=== PATIENT | female | born 1980 | race Caucasian/White ===

== ENCOUNTER 2018-03-01 15:17 | Emergency (ER) | payer MEDICAID, OTHER ==
[2018-03-01 16:32] VITALS: BP 115/65
[2018-03-01] MEDS ORDERED: Albuterol HFA INHALER* 8 gm MDI INH ONE (17:39)
--- NOTE | 2018-03-01 17:39 | ED ---
Respiratory - HPI Summary HPI Summary: 37 yo WF c/o SOb x 4 days associated with URI sx that started 2-3 weeks ago but became progressively worse and now more SOB at night, denies f/c - History of Current Complaint Chief Complaint: UCRespiratory Stated Complaint: SOB, COUGH Time Seen by Provider: 03/01/18 17:13 Hx Obtained From: Patient Onset/Duration: Lasting Weeks Current Severity: Severe Pain Intensity: 0 Character: Cough (Nonproductive) - Allergy/Home Medications Allergies/Adverse Reactions: Allergies Allergy/AdvReac Type Severity Reaction Status Date / Time No Known Allergies Allergy Verified 03/01/18 16:32 Home Medications: Home Medications Albuterol HFA INHALER* [Ventolin HFA Inhaler*] 2 puff INH Q6H PRN 03/01/18 [ History Confirmed 03/01/18] PMH/Surg Hx/FS Hx/Imm Hx Previously Healthy: Yes Infectious Disease History: No Infectious Disease History: Denies: Traveled Outside the [place] in Last 30 Days - Social History Alcohol Use: Rare Substance Use Type: Reports: None Smoking Status (MU): Light Every Day Tobacco Smoker Review of Systems Constitutional: Negative Eyes: Negative ENT: Negative Cardiovascular: Negative Positive: Shortness Of Breath, Cough Gastrointestinal: Negative Genitourinary: Negative Musculoskeletal: Negative Skin: Negative Neurological: Negative All Other Systems Reviewed And Are Negative: Yes Physical Exam - Summary Physical Exam Summary: Vital Signs Reviewed: Yes Appearance: Positive: Well-Appearing Skin: Positive: Warm Head/Face: Positive: Normal Head/Face Inspection Eyes: Positive: Normal, EOMI, EDEN ENT: Positive: Normal ENT inspection Neck: Positive: Supple Respiratory/Lung Sounds: Positive: decreased BS B/L, NO wheezing, mild rhonchi Cardiovascular: Positive: Normal, RRR, S1, S2 Abdomen Description: Positive: Nontender, Soft Musculoskeletal: Positive: Normal Neurological: Positive: CN Intact II-XII Psychiatric: Positive: Normal Triage Information Reviewed: Yes Vital Signs On Initial Exam: Initial Vitals Temp Pulse Resp BP Pulse Ox 36.2 C 76 20 115/65 100 03/01/18 16:28 03/01/18 16:28 03/01/18 16:28 03/01/18 16:28 03/01/18 16:28 Diagnostics - Vital Signs Vital Signs Temp Pulse Resp BP Pulse Ox 03/01/18 16:28 36.2 C 76 20 115/65 100 - Laboratory Lab Statement: Any lab studies that have been ordered have been reviewed, and results considered in the medical decision making process. Disposition - Course Course Of Treatment: CXR- neg for alveolar infiltrates but willl tx for bronchitis Assessment/Plan: Bronchitis- z-dagoberto - Diagnoses Provider Diagnoses: SOB (shortness of breath), Bronchitis Discharge - Sign-Out/Discharge Documenting (check all that apply): Patient Departure All imaging exams completed and their final reports reviewed: Yes - Discharge Plan Condition: Stable Disposition: HOME Prescriptions: Azithromyxin DAGOBERTO (NF) [Z-Dagoberto (Zithromax) 250 mg tabs #6] 2 tab PO .TODAY, THEN 1 DAILY #6 tab Patient Education Materials: Acute Bronchitis (ED) Referrals: Ryanne Granados MD [Primary Care Provider] - Additional Instructions: F/un with PCP or ceramic tile installer if sx worsen - Billing Disposition and Condition Condition: STABLE Disposition: Home
--- NOTE | 2018-03-01 18:04 | RAD ---
INDICATION: Cough and shortness of breath for 4 days. Intermittent tobacco use. COMPARISON: No relevant prior exams available on the [facility] [place] PACS for comparison. TECHNIQUE: Dual energy PA and routine lateral views of the chest were obtained. REPORT: No focal pulmonary lesion, compelling alveolar consolidation, pleural effusion, pneumothorax. The heart, pulmonary vasculature, and mediastinal contours are unremarkable. Unremarkable soft tissue contours and osseous structures. IMPRESSION: #. No evidence for acute intrathoracic disease.
== END 2018-03-01 18:33 | disposition home or self-care (01) ==
LOC: UCCORT 15:17
DX: J40 Bronchitis, not specified as acute or chronic (principal); R06.02 Shortness of breath; F17.200 Nicotine dependence, unspecified, uncomplicated
CPT/HCPCS: 71046; 99212; A9270-GY; G0463

== ENCOUNTER 2018-05-21 09:05 | Emergency (ER) | payer OTHER ==
[2018-05-21 09:38] VITALS: BP 101/59
--- NOTE | 2018-05-21 10:19 | UC ---
Respiratory Complaint HPI - HPI Summary HPI Summary: cough x 4 weeks chest congestion , wheezing, difficulty breathing was seen 3 weeks ago , was placed on Zpak/ prednisone and albuterol has some improvement but not fully better, no fever, no chills - History of Current Complaint Chief Complaint: UCRespiratory Stated Complaint: SOB/COUGH/WHEEZY Time Seen by Provider: 05/21/18 10:06 Hx Obtained From: Patient Hx Last Menstrual Period: 05/20/18 Onset/Duration: Gradual Onset, Lasting Weeks - 4, Still Present Timing: Constant Severity Initially: Moderate Severity Currently: Moderate Pain Intensity: 4 Character: Cough: Nonproductive Aggravating Factors: Exertion, Deep Breaths Alleviating Factors: Bronchodilator Associated Signs And Symptoms: Positive: Dyspnea, Wheezing, URI, Nasal Congestion. Negative: Fever, Chills - Allergies/Home Medications Allergies/Adverse Reactions: Allergies Allergy/AdvReac Type Severity Reaction Status Date / Time codeine Allergy Nausea Verified 05/21/18 09:30 Home Medications: Home Medications Escitalopram Oxalate [Lexapro 20 mg] 40 mg PO DAILY 05/21/18 [History Confirmed 05/21/18] Multivitamins/Minerals TAB* [Theragran/minerals TAB*] 1 tab PO DAILY 05/21/18 [ History Confirmed 05/21/18] Naproxen TAB* [Naprosyn 375 mg TAB*] 375 mg PO ONCE 05/21/18 [History Confirmed 05/21/18] PMH/Surg Hx/FS Hx/Imm Hx Previously Healthy: Yes - Surgical History Surgical History: Yes Surgery Procedure, Year, and Place: - Family History Known Family History: Negative: Diabetes - Social History Alcohol Use: Occasionally Substance Use Type: None Smoking Status (MU): Light Every Day Tobacco Smoker Type: Cigarettes Amount Used/How Often: 1-2 cigs/day Review of Systems All Other Systems Reviewed And Are Negative: Yes Constitutional: Positive: Negative Skin: Positive: Negative Eyes: Positive: Negative ENT: Positive: Nasal Discharge. Negative: Sore Throat, Ear Ache, Sinus Congestion, Sinus Pain/Tenderness Respiratory: Positive: Shortness Of Breath, Cough Cardiovascular: Positive: Negative Gastrointestinal: Positive: Negative Is Patient Immunocompromised?: No Physical Exam Triage Information Reviewed: Yes Appearance: Well-Appearing, No Pain Distress, Well-Nourished Vital Signs: Initial Vital Signs Temp 98.2 F 05/21/18 09:31 Pulse 83 05/21/18 09:31 Resp 18 05/21/18 09:31 BP 101/59 05/21/18 09:31 Pulse Ox 96 05/21/18 09:31 Vital Signs Reviewed: Yes Eye Exam: Normal Eyes: Positive: Conjunctiva Clear ENT: Positive: Normal ENT inspection, Hearing grossly normal, Pharynx normal, Nasal congestion Neck: Positive: Supple, Nontender, No Lymphadenopathy Respiratory: Positive: Chest non-tender, Wheezing. Negative: Respiratory distress, Crackles, Rhonchi, Stridor Cardiovascular: Positive: RRR, No Murmur UC Diagnostic Evaluation - Laboratory O2 Sat by Pulse Oximetry: 96 Respiratory Course/Dx - Differential Dx/Diagnosis Provider Diagnosis: Bronchitis Discharge - Sign-Out/Discharge Documenting (check all that apply): Patient Departure All imaging exams completed and their final reports reviewed: No Studies - Discharge Plan Condition: Stable Disposition: HOME Prescriptions: Albuterol HFA INHALER* [Ventolin HFA Inhaler*] 2 puff INH Q6H PRN #1 mdi PRN Reason: Wheezing Codeine Phosphate/Guaifenesin [Cheratussin AC] 10 ml PO Q8H #120 ml MDD 30 ml predniSONE [Prednisone 20 MG TAB] 20 mg PO BID #10 tablet Patient Education Materials: Acute Bronchitis (ED) Referrals: Ryanne Granados MD [Primary Care Provider] - If Needed - Billing Disposition and Condition Condition: STABLE Disposition: Home
== END 2018-05-21 10:19 | disposition home or self-care (01) ==
LOC: UCCORT 09:05
DX: J40 Bronchitis, not specified as acute or chronic (principal); J06.9 Acute upper respiratory infection, unspecified; F17.210 Nicotine dependence, cigarettes, uncomplicated; Z88.5 Allergy status to narcotic agent
CPT/HCPCS: 99212; G0463

== ENCOUNTER 2019-02-24 08:14 | Inpatient (IN) | payer OTHER ==
[2019-02-24] MEDS ORDERED: Lactated Ringers 1000 ML Bag* 1,000 ML IV ONE ×2 (08:33→14:29)
[2019-02-24] MEDS ORDERED: Buffered Lidocaine 1% SYRIN* 1 ML/SYRINGE INTRADERM ONE (08:33)
[2019-02-24] MEDS ORDERED: Lactated Ringers 1000 ML Bag* 1,000 ML IV SCH ×3 (09:00→19:00)
[2019-02-24] MEDS ORDERED: Oxytocin in LR* 20 UNITS/1,000 ML BAG IVPB SCH (09:00)
[2019-02-24 09:11] LABS: Urine Benzodiazepine Screen None Detected (None Detect); Urine Opiates Screen None Detected (None Detect)
[2019-02-24 09:29] LABS: ABS Eosinophils 0.1 10^3/ul (0-0.6); ABS Lymphocytes 1.7 10^3/ul (1.0-4.8); ABS Monocytes 0.6 10^3/ul (0-0.8); ABS Neutrophils 6.4 10^3/ul (1.5-7.7); Eosinophil % 1.5 %; Hematocrit 37 % (35-47); Hemoglobin 12.6 g/dL (12.0-16.0); Lymphocyte % 18.8 %; Mean Corpuscular HGB Conc 35 g/dL (31-36); Mean Corpuscular Hemoglobin 32 pg (27-31); Mean Corpuscular Volume 93 fL (80-97); Mean Platelet Volume 9.7 fL (7.4-10.4); Platelet Count 187 10^3/uL (150-450); Red Blood Count 3.93 10^6 /uL (3.70-4.87); Red Cell Distribution Width 14 % (10-15); White Blood Count 8.8 10^3/uL (3.5-10.8)
--- NOTE | 2019-02-24 09:34 | HP ---
General Information - Reason for Visit Induction - General Information Maternal Age: 38 Grav: 10 Para: 5 SAB: 4 IEA: 0 Estimated Due Date: 02/18/19 Determined By: Early Ultrasound Maternal Blood Type and Rh: O Positive - Results this Serology/RPR Result: Non-Reactive Rubella Result: Immune HBsAg Result: Negative HIV Result: Negative GBS Culture Result: Negative Past Medical History Delivery History: Hx C/Section - 2 successful VBACs Pertinent Past Medical History: Non-Contributory Pertinent Past Surgical History: See Records Pertinent Family History: Non-Contributory - Antepartal Records Antepartal Records: Reviewed, Uncomplicated Review of Systems Constitutional: Comfortable CV Complaint: No Respiratory: Shortness of Breath: No Gastrointestinal: No Nausea/Vomiting Genitourinary: No Dysuria, No Bleeding, No Leaking Fluid Musculoskeletal: No Complaint Neurological: No Headache Movement: Normal Exam Allergies/Adverse Reactions: Allergies codeine Allergy (Verified 05/21/18 09:30) Nausea Lab Values - Entire Visit: Laboratory Tests 02/24/19 08:30 Urine Opiates Screen None detected Ur Barbiturates Screen None detected Ur Phencyclidine Scrn None detected Ur Amphetamines Screen None detected U Benzodiazepines Scrn None detected Urine Cocaine Screen None detected U Cannabinoids Screen None detected - Measurements Height: 5 ft 6 in Weight: 180 lb Weight in lbs: [id number] Body Mass Index (BMI): 29.0 Pre- Weight: 150 lb Weight Gained This : 30 lbs and 0 ozs - Exam Breast: Breast Exam Deferred Extremities: No Edema Heart: Normal Rhythm/Heart Sounds HEENT: No Significant Findings - Abdominal Exam Abdomen Exam: Non-Tender - Ultrasound/Biophysical Profile Ultrasound Status: Not Done Targeted Exam Findings Cervical Exam: Fingertip - in office on 02/21 Membrane Status: Intact EFM Findings - External Monitor Findings Baseline Heart Rate: 140 External Monitor Findings: Accelerations Present, No Pattern of Variable or Late Decelerations, Variability Moderate, Baseline Stable Contractions: None Assessment/Plan - Assessment P5 @40.6wks with CS x1 for distress followed by 2 VBACs, here for induction with low dose pit. - Obstetrical Risk Factors Obstetrical Risk Factors: Previous C/Section in Labor - Plan Plan: Induction, Admit - Anticipate Vaginal Delivery
--- NOTE | 2019-02-24 12:42 | PN ---
Progress Note - Progress Note Date of Service: 02/24/19 Note: Pt susan every 2min. Would like cervix checked. They are pretty uncomfortable and she has to breath through them now. Pit @8. SROM just prior to exam - clear fluid. VE:1/80/-1/posterior FHT: 135bpm, +accels, no decels, mod variability [place]: ctx q2min. Plan: decrease pit to 6. Monitor. Not ready for epidural quite yet.
[2019-02-24] MEDS ORDERED: OBEPIDURAL* 250 ML EPIDURAL ONE (13:56)
[2019-02-24] MEDS ORDERED: Bupivacaine 0.25% SDV PF* 10 ML VIAL INJ ONE (13:58)
[2019-02-24] MEDS ORDERED: EPHEDrine (Pressors)* 50 MG/ML VIAL IV PUSH PRN (14:29)
[2019-02-24] MEDS ORDERED: Sodium Citrate/Citric Acid* 15 ML UDC PO PRN (14:29)
[2019-02-24] MEDS ORDERED: Famotidine TAB* 20 MG PO PRN (14:29)
[2019-02-24] MEDS ORDERED: Phenylephrine 40 MCG/ML SYRINGE IV PUSH PRN (14:29)
[2019-02-24] MEDS ORDERED: OBEPIDURAL* 250 ML EPIDURAL SCH (15:00)
[2019-02-24] MEDS ORDERED: Witch Hazel PAD* JAR TOPICAL PRN (18:22)
[2019-02-24] MEDS ORDERED: Glycerin ADULT SUPP PR PRN (18:22)
[2019-02-24] MEDS ORDERED: Acetaminophen TAB* 325 MG PO PRN (18:22)
[2019-02-24] MEDS ORDERED: Dibucaine 1% 28.35 GM TUBE PR PRN (18:22)
--- NOTE | 2019-02-24 18:30 | PROCNOTE ---
[facility] OB: Delivery Note - Delivery A Date of : 02/24/19 Sex: Female Barnard Weight at : 6 lb 13 oz Score 1 Minute: 9 Score 5 Minutes: 9 Gestational Age in Weeks and Days at Delivery: 40 Weeks and 6 Days Delivery Method: Spontaneous Vaginal Labor: Induced Did Patient attempt ?: Yes, Successful Amniotic Fluid: Clear Estimated Blood Loss: 300 Anesthesia/Analgesia: CEI for Labor Delivered By: Bernadette Lara - Nursery Level of Nursery: Regular/Bedside - Perineum Perineal Injury: None/Intact, Periurethral Laceration - no repair, hemostatic - Events Delivery Events of Note: Pitocin During Labor - Additional Delivery Notes Additional Delivery Notes: Pt presented for Induction at 40.6wks. She started on low dose pitocin and began having regular strong contractions. She received an epidural and progressed to fully dilated about 7 hours after starting pitocin. She then pushed about 20min to deliver the infant's head over intact perineum in CHIVO position. A loose nuchal cord was reduced and she delivered the shoulders with a nuchal posterior hand followed by the rest of the body. The baby was placed on mom's abdomen. After more than 1min the cord was clamped x2 and cut by dad. The placenta delivered with gentle cord traction and fundal massage and appeared intact. A small increase in bleeding subsided with fundal massage and initiation of pitocin. Fundus firm and good hemostasis after that. Mom and baby stable at time of note
[2019-02-24] MEDS: Docusate CAP* 100 MG PO SCH (20:59)
[2019-02-24] MEDS ORDERED: Simethicone TAB* 80 MG TAB.CHEW PO SCH (21:00)
[2019-02-24] MEDS: Ibuprofen TAB* 600 MG PO PRN (23:43)
[2019-02-25 06:36] LABS: ABS Eosinophils 0.2 10^3/ul (0-0.6); ABS Lymphocytes 1.8 10^3/ul (1.0-4.8); ABS Neutrophils 8.2 10^3/ul (1.5-7.7); Eosinophil % 1.6 %; Hematocrit 34 % (35-47); Hemoglobin 11.9 g/dL (12.0-16.0); Lymphocyte % 16.3 %; Mean Corpuscular HGB Conc 35 g/dL (31-36); Mean Corpuscular Hemoglobin 33 pg (27-31); Mean Corpuscular Volume 93 fL (80-97); Platelet Count 151 10^3/uL (150-450); Red Blood Count 3.67 10^6 /uL (3.70-4.87); Red Cell Distribution Width 14 % (10-15); White Blood Count 11.2 10^3/uL (3.5-10.8)
[2019-02-25] MEDS: Ibuprofen TAB* 600 MG PO PRN ×2 (08:38→14:53)
[2019-02-25] MEDS: Docusate CAP* 100 MG PO SCH ×2 (08:39→14:53)
[2019-02-25] MEDS ORDERED: Ferrous Gluconate TAB* 324 MG TAB PO SCH (09:00)
[2019-02-26] MEDS: Ibuprofen TAB* 600 MG PO PRN ×3 (01:00→13:23)
[2019-02-26] MEDS: Docusate CAP* 100 MG PO SCH ×2 (07:08→13:24)
[2019-02-26 11:52] VITALS: BP 108/63
== END 2019-02-26 13:55 | disposition home or self-care (01) | DRG 560 ==
LOC: MCHOBOUT 08:14 → MCHOB 08:39
PROVIDERS: ADMIT Obstetrics & Gynecology; ATTEND Obstetrics & Gynecology
PROC: 10E0XZZ Delivery of Products of Conception, External Approach (ICD-10-PCS; principal; 2019-02-24)
PROC: 3E033VJ Introduction of Other Hormone into Peripheral Vein, Percutaneous Approach (ICD-10-PCS; 2019-02-24)
DX: O48.0 Post-term pregnancy (principal); Z37.0 Single live birth; Z3A.40 40 weeks gestation of pregnancy; O34.211 Maternal care for low transverse scar from previous cesarean delivery; O69.81X0 Labor and delivery complicated by cord around neck, without compression, not applicable or unspecified; O69.89X0 Labor and delivery complicated by other cord complications, not applicable or unspecified; O71.82 Other specified trauma to perineum and vulva
CPT/HCPCS: 36415; 80307; 85025; 86850; 86900; 86901; A9270-GY; J3490